=== PATIENT | female | born 1960 | race Caucasian/White ===

== ENCOUNTER 2024-07-04 11:19 | Outpatient (REF) | payer OTHER, SELFPAY ==
--- NOTE | 2024-07-04 11:00 | PAPFT_PTH ---
PATIENT: Sherry Figueroa LOC: [facility] U#:[id number] AGE/SX: 64/F ROOM: RE07/04/[address]: Shira Au NP : 1960 BED: DIS: 07/04/2024 SPEC #: [id number] RECD: 07/04/24 12:41 STATUS: SUSANA REQ #: [id number] ISAC: 07/04/24 11:[address]: Roe SOUTH,Shira DEPT: [facility] Cytology RECD BY: Kecia Rajput ENTERED: 07/04/24 12:41 SP TYPE: PAPFT OTHR DR: Unknown,Unknown Tissues: 1 - CX/ENDOCX FOR PAP SMEARS Procedures: PAP THIN PREP/[facility] Screening HPV DNA PROBE Comments: [id number] (HPV 16 & 18/45)
== END 2024-07-04 11:20 | disposition home or self-care (01) ==
LOC: LBN 11:19
PROVIDERS: Visit Provider Nurse Practitioner Women's Health
DX: Z12.4 Encounter for screening for malignant neoplasm of cervix (principal); Z01.419 Encounter for gynecological examination (general) (routine) without abnormal findings; L30.9 Dermatitis, unspecified
CPT/HCPCS: 88142; 87624

== ENCOUNTER 2024-08-24 00:25 | Outpatient (CLI) | payer OTHER, SELFPAY ==
--- NOTE | 2024-08-24 15:06 | DI.MAMMO_ITS ---
Exam(s) MAMMO SCREENING EXAM: MAMMO SCREENING CLINICAL HISTORY: SCREENING, Z12.39. TECHNIQUE: Bilateral full field digital CC and MLO mammographic images were obtained with 3D tomosyn thesis and utilizing computer aided detection (CAD). COMPARISON: Prior 1015 mammogram was reviewed. There are no interval mammograms FINDINGS: There has been no significant change in the appearance and distribution of the fibroglandular tissue. There are no CAD designations. There are no new spiculated masses nor malignant appearing microcalcification groups. There is no significant architectural distortion nor skin thickening-retraction. IMPRESSION: No radiographic evidence of malignancy. BI-RADS Category 1 - Negative Breast Density - Category B - There are scattered areas of fibroglandular density. Breast density Category C or D implies that the patient has dense breast tissue. Dense breast tissue can make it harder to find cancer on a mammogram. Dense breast tissue is also associated with an incr eased risk of breast cancer. This information about the result of the mammogram report was provided to the patient to raise their awareness. Use this report when you speak with the patient about their risks for breast cancer, which includes their family history. At that time, you may recommend additional screening tests (Ultrasoun d or MRI) as these tests may add significant information. A negative radiographic report should not delay biopsy if a dominant or clinically suspicious mass is present. Up to ten percent of cancers are not identified on mammography. A negative report may reinforce clinical impression. Adenosis and dense breasts may obscure an underlying neoplasm. False positive reports average 6 to 10%. Patient will receive a letter notifying them of these results.
== END 2024-08-24 00:45 ==
LOC: DI 00:25
PROVIDERS: Visit Provider Nurse Practitioner Women's Health
DX: Z12.31 Encounter for screening mammogram for malignant neoplasm of breast (principal); R92.323 Mammographic fibroglandular density, bilateral breasts
CPT/HCPCS: 77063; 77067